=== PATIENT | female | born 1950 | race Caucasian/White ===

== ENCOUNTER 2020-01-28 18:02 | Observation (INO) | payer OTHER ==
[~2020-01-28] VITALS: Ht 154.9 cm; Wt 73.9 kg
[2020-01-28 18:15] VITALS: Ht 154.9 cm; Wt 73.9 kg
[2020-01-28 18:57] LABS: PLATELET COUNT 332 x10^3mcL (130-400)
[2020-01-28 18:59] LABS: BASOPHIL % 0 % (0-2); RED CELL DISTRIBUTION WIDTH 18.2 % (11.5-14.5)
[2020-01-28 19:00] LABS: ALKALINE PHOSPHATASE 114 U/L (46-116); ALT/SGPT 17 U/L (14-59); AST/SGOT 18 U/L (15-37); BILIRUBIN TOTAL 0.5 mg/dL (0.20-1.00); CALCIUM 9.1 mg/dL (8.5-10.1); CARBON DIOXIDE 28.5 mmol/L (21-32); CHLORIDE SERUM 102 mmol/L (98-107); CREATININE SERUM 0.8 mg/dL (0.6-1.0); GLUCOSE SERUM 98 mg/dL (74-106); SODIUM SERUM 140 mmol/L (136-145); TOTAL PROTEIN, SERUM 7.2 g/dL (6.4-8.2)
[2020-01-28 19:04] LABS: ALBUMIN 2.6 g/dL (3.4-5.0)
[2020-01-28] MEDS ORDERED: TRAZODONE150 M1 PO (21:28)
[2020-01-28] MEDS ORDERED: FOLGARD1 TAB PO (21:28)
[2020-01-28] MEDS ORDERED: ACETAMINOPHEN-H1 TA1 PO (21:29)
[2020-01-28] MEDS ORDERED: TRAMADOL HCL50 MG PO (21:29)
[2020-01-28] MEDS ORDERED: SERTRALINE H20 MG/ML PO (21:29)
[2020-01-28] MEDS ORDERED: FEOSOL65 M1 PO (21:32)
[2020-01-28] MEDS ORDERED: EUTHYROX200 MCG PO (21:33)
[2020-01-28] MEDS ORDERED: LASIX20 MG PO (21:33)
[2020-01-28] MEDS ORDERED: FLOVENT DI250 MCG/A1 (21:33)
[2020-01-28] MEDS ORDERED: FOLBIC RF1 TAB PO (21:33)
[2020-01-28] MEDS ORDERED: RA COLD RLF MU1 EACH PO (21:34)
[2020-01-28] MEDS ORDERED: DOK COLACE100 MG PO (21:34)
[2020-01-28] MEDS ORDERED: BENZONATATE200 MG PO (21:34)
[2020-01-28] MEDS ORDERED: ZOVIRAX400 MG PO (21:34)
[2020-01-28] MEDS ORDERED: ANTIFUNGAL14 G1 (21:35)
[2020-01-28] MEDS ORDERED: SILENOR3 MG (21:35)
[2020-01-29 02:12] VITALS: BP 141/60
[2020-01-29 05:55] VITALS: BP 144/78
[2020-01-29 06:29] LABS: BASOPHIL % 0.1 % (0-2); PLATELET COUNT 285 x10^3mcL (130-400)
[2020-01-29 06:30] LABS: RED CELL DISTRIBUTION WIDTH 18.8 % (11.5-14.5)
[2020-01-29 06:34] LABS: CALCIUM 8.7 mg/dL (8.5-10.1); CARBON DIOXIDE 29.5 mmol/L (21-32); CHLORIDE SERUM 105 mmol/L (98-107); CREATININE SERUM 0.7 mg/dL (0.6-1.0); GLUCOSE SERUM 83 mg/dL (74-106); POTASSIUM SERUM 3.1 mmol/L (3.5-5.1); SODIUM SERUM 141 mmol/L (136-145)
[2020-01-29 08:28] VITALS: BP 121/67
[2020-01-29 12:31] VITALS: BP 146/74
[2020-01-29 14:44] VITALS: BP 146/74
== END 2020-01-29 15:48 ==
LOC: ED 18:02 → DU 01-29 00:55
PROVIDERS: Emergency Medicine; ADMIT Internal Medicine Pulmonary Disease
DX: R55 Syncope and collapse (principal); F32.9 Major depressive disorder, single episode, unspecified; M79.7 Fibromyalgia; G89.29 Other chronic pain; J45.909 Unspecified asthma, uncomplicated; E03.9 Hypothyroidism, unspecified; G51.0 Bell's palsy; R62.51 Failure to thrive (child); R29.6 Repeated falls; E66.9 Obesity, unspecified; R26.9 Unspecified abnormalities of gait and mobility; M17.12 Unilateral primary osteoarthritis, left knee; M16.12 Unilateral primary osteoarthritis, left hip; E87.6 Hypokalemia
CPT/HCPCS: 97116-GP; G0378; J1644; J1885; J2405; J3480; J7030